=== PATIENT | female | born 2000 | race Caucasian/White ===

== ENCOUNTER 2020-03-13 20:26 | Emergency (ER) | payer OTHER ==
[~2020-03-13] VITALS: Ht 152.4 cm; Wt 56.7 kg
[~2020-03-13 20:26] MED LIST: FLOVENT HFA12 GM INH; IPRAT-ALBUT 0.5-3 ML INH; VENTOLIN HFA18 GM INH
== END 2020-03-14 00:09 | disposition home or self-care (01) ==
LOC: ED 20:26
DX: R10.30 Lower abdominal pain, unspecified (principal); J45.909 Unspecified asthma, uncomplicated; Z87.891 Personal history of nicotine dependence; Z88.0 Allergy status to penicillin
CPT/HCPCS: 74176; 80053; 81001; 84703; 85025; 99284-25; J7030

== ENCOUNTER 2020-06-02 21:30 | Emergency (ER) | payer OTHER ==
[~2020-06-02] VITALS: Ht 152.4 cm; Wt 68.0 kg
[~2020-06-02 21:30] MED LIST changes: +DOXYCYCLINE HY100 MG PO
[2020-06-03] MEDS ORDERED: DICLEGIS DR 101 EACH PO (00:27)
== END 2020-06-03 00:45 | disposition home or self-care (01) ==
LOC: ED 21:30
DX: O21.9 Vomiting of pregnancy, unspecified (principal); Z87.891 Personal history of nicotine dependence; Z88.0 Allergy status to penicillin
CPT/HCPCS: 84703; 85025; 99284

== ENCOUNTER 2020-06-07 06:53 | Emergency (ER) | payer OTHER ==
[~2020-06-07] VITALS: Ht 152.4 cm; Wt 74.4 kg
[~2020-06-07 06:53] MED LIST changes: +DICLEGIS DR 101 EACH PO
--- OUTSIDE RECORDS SUMMARY | 2020-06-07 06:56 | XMS ---
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 [place] VISIT COUNT (12 MO.) 1 [facility] [address] [facility] TOTAL 6 NOTE: Visits indicate total known visits. ED/UCC VISIT TRACKING (12 MO.) 06/07/2020 06:[address] [facility] [place] TYPE: Emergency COMPLAINT: - ABD PAIN, APROX 5 WKS 06/02/2020 21:[address] [facility] [place] TYPE: Emergency COMPLAINT: - VOMITING, POSSIBLY DIAGNOSES: - Nausea with vomiting, unspecified - Allergy status to penicillin - Personal history of nicotine dependence - Vomiting of , unspecified 04/11/2020 19:[address] [facility] TYPE: Emergency COMPLAINT: - ABDOMINAL PAIN DIAGNOSES: - Unspecified abdominal pain - Unspecified asthma, uncomplicated - Other microscopic hematuria - Lower abdominal pain, unspecified - Personal history of nicotine dependence - Allergy status to penicillin - Other microscopic hematuria 03/13/2020 20:28 [facility] [place] TYPE: Emergency COMPLAINT: - ABDOMINAL PAIN,FEVER DIAGNOSES: - Lower abdominal pain, unspecified - Allergy status to penicillin - Unspecified asthma, uncomplicated - Personal history of nicotine dependence [facility] DIAGNOSES: - hand laceration - Laceration without foreign body of unspecified finger without damage to nail, initial encounter 07/06/2019 01:37 [facility] TYPE: Emergency DIAGNOSES: - abdominal pain - Acute cystitis without hematuria - Abdominal Cramping INPATIENT VISIT TRACKING (12 MO.) No inpatient visits to display in this time frame [email or web address]
[2020-06-07] MEDS ORDERED: PROMETHAZINE HC25 M1 PO (08:29)
== END 2020-06-07 08:52 | disposition home or self-care (01) ==
LOC: ED 06:53
DX: O99.891 Other specified diseases and conditions complicating pregnancy (principal); R10.2 Pelvic and perineal pain; Z3A.01 Less than 8 weeks gestation of pregnancy; Z87.891 Personal history of nicotine dependence; Z88.0 Allergy status to penicillin
CPT/HCPCS: 76801; 76817; 81001; 84702; 85025; 86900; 86901; 99284-25

== ENCOUNTER 2020-06-19 22:07 | Emergency (ER) | payer OTHER ==
[~2020-06-19] VITALS: Ht 152.4 cm; Wt 74.4 kg
[~2020-06-19 22:07] MED LIST changes: +PROMETHAZINE HC25 M1 PO
--- OUTSIDE RECORDS SUMMARY | 2020-06-19 22:10 | XMS ---
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 Care History Medical/Surgical 06/14/2020 [facility] FAMILY PARTNERSHIP PROGRAM REFERRAL MADE 06/14/2020 FOR FURTHER FOLLOW UP AND EDUCATION TO PROVIDE DUE TO FIRST TIME . 06/13/2020 [facility] - PATIENT HAS AN APT WITH DR SANIA CASAREZ ON 06/25/2020. E.D. VISIT COUNT ([address] [facility] TOTAL 8 NOTE: Visits indicate total known visits. ED/UCC VISIT TRACKING (12 MO.) 06/19/2020 22:08 [facility] TYPE: Emergency COMPLAINT: - CHEST PAIN 06/12/2020 21:12 [facility] TYPE: Emergency COMPLAINT: - DIFFICULTY BREATHING DIAGNOSES: - Chest pain, unspecified - Other specified diseases and conditions complicating - Personal history of nicotine dependence - Allergy status to penicillin - Less than 8 weeks gestation of 06/07/2020 06:53 [facility] TYPE: Emergency COMPLAINT: - ABD PAIN, APROX 5 WKS DIAGNOSES: - Allergy status to penicillin - Pelvic and perineal pain - Less than 8 weeks gestation of - Personal history of nicotine dependence - Other specified diseases and conditions complicating 06/02/2020 21:31 [facility] TYPE: Emergency COMPLAINT: - VOMITING, POSSIBLY DIAGNOSES: - Nausea with vomiting, unspecified - Allergy status to penicillin - Personal history of nicotine dependence - Vomiting of , unspecified 04/11/2020 19:31 [facility] TYPE: Emergency COMPLAINT: - ABDOMINAL PAIN [...] Personal history of nicotine dependence [facility] DIAGNOSES: - hand laceration - Laceration without foreign body of unspecified finger without damage to nail, initial encounter 07/06/2019 01:37 [facility] TYPE: Emergency DIAGNOSES: - abdominal pain - Acute cystitis without hematuria - Abdominal Cramping INPATIENT VISIT TRACKING (12 MO.) No inpatient visits to display in this time frame [id number]
--- NOTE | 2020-06-20 13:31 | EKG ---
[facility] [address] [facility] [address] [place] [address] Signed Normal sinus rhythm Normal ECG No previous ECGs available Confirmed by JULIAN MONTE MD ([id number]) on 06/20/2020 1:31:07 PM Electronically Signed By: JULIAN MONTE MD 06/20/20 1331 PATIENT NAME: NANY MENSAH Electrocardiogram DATE OF : [birth year] PHYSICIAN: JULIAN MONTE MD REPORT #: [id number] REPORT IS CONFIDENTIAL AND NOT TO BE RELEASED WITHOUT AUTHORIZATION
== END 2020-06-20 01:00 | disposition home or self-care (01) ==
LOC: ED 22:07
DX: O21.9 Vomiting of pregnancy, unspecified (principal); O99.891 Other specified diseases and conditions complicating pregnancy; R07.9 Chest pain, unspecified; Z3A.08 8 weeks gestation of pregnancy; O99.511 Diseases of the respiratory system complicating pregnancy, first trimester; J45.909 Unspecified asthma, uncomplicated; Z87.891 Personal history of nicotine dependence; Z88.0 Allergy status to penicillin
CPT/HCPCS: 71260; 80053; 85025; 85379; 93005; 93010; 99285-25; Q9967